=== PATIENT | male | born 1935 | race Caucasian/White ===

== ENCOUNTER 2019-03-28 11:08 | Emergency (ER) | payer OTHER, MEDICARE ==
[~2019-03-28] VITALS: Ht 172.7 cm; Wt 72.6 kg
[~2019-03-28 11:08] MED LIST: ALLOPURINOL 30300 M2 PO; APAP500 PO; AVODART0.5 MG PO; BAYER CHEWABLE81 MG PO; BIOFREEZE118 ML TP; CENTRUM SILVER1 EAC2 PO; COLACE100 MG PO; COZAAR 50 MG TA50 M2 PO; ECONAZOLE NITRA85 GM; LIPITOR10 MG PO; NORCO 5-325 TA1 EACH PO
[2019-03-28 12:05] LABS: ABSOLUTE NEUTROPHILS 4.6 thou/uL (1.4-8.2); BASOPHILS 0.2 % (0.0-2.0); EOSINOPHILS 4.5 % (0.0-3.0); HEMOGLOBIN 15.1 gm/dL (14.0-18.0); LYMPHOCYTES 24.1 % (24.0-44.0); MCH 32.3 pg (26.0-34.0); MCHC 34.3 g/dL (28.0-37.0); MCV 94.2 fL (80.0-100.0); MONOCYTES 10.4 % (1.0-8.0); PLATELET COUNT 204 thou/uL (150-400); POLYS 60.8 % (36.0-66.0); RBC 4.67 mil/uL (4.50-6.00); RDW 13.7 % (10.5-14.5); WBC 7.6 thou/uL (4.0-11.0)
[2019-03-28 12:11] LABS: CALCIUM 9.8 mg/dL (8.5-10.1); CREATININE 1.5 mg/dL (0.7-1.3); POTASSIUM 4.4 mmol/L (3.5-5.1)
[2019-03-28 12:18] LABS: ALBUMIN 3.9 g/dL (3.4-5.0); TOTAL BILIRUBIN 0.6 mg/dL (<0.1-1.0); TOTAL PROTEIN 7.8 g/dL (6.4-8.2)
[2019-03-28 12:21] LABS: URINE BILIRUBIN NEGATIVE (Negative); URINE BLOOD 3+ (Negative); URINE GLUCOSE-RANDOM* NEGATIVE (Negative); URINE KETONES NEGATIVE (Negative); URINE LEUKOCYTES-REFLEX NEGATIVE (Negative); URINE NITRITE-REFLEX NEGATIVE (Negative); URINE PROTEIN (DIPSTICK) 2+ (Negative); URINE UROBILINOGEN 0.2 E.U./dl (0.2-1.0)
[2019-03-28 12:26] LABS: URINE CLARITY CLOUDY; URINE COLOR RED
[2019-03-28 13:12] LABS: CASTS None Seen /LPF (None Seen); CRYSTALS None Seen /LPF (None Seen); SQUAMOUS None Seen /LPF (0-3); URINE RBC >20 Many /HPF (0-2); URINE WBC-REFLEX 0-5 Rare /HPF (0-5)
[2019-03-28 13:13] LABS: BACTERIA-REFLEX >30 Many /HPF (None Seen)
[2019-03-28 13:14] LABS: YEAST-REFLEX Present (None Seen)
[2019-03-28] MEDS ORDERED: CIPRO500 MG PO (13:48)
[2019-03-28 14:18] VITALS: BP 146/71
== END 2019-03-28 14:18 | disposition home or self-care (01) ==
LOC: ER 11:08
PROVIDERS: Nurse Practitioner Family
DX: R31.9 Hematuria, unspecified (principal); E78.00 Pure hypercholesterolemia, unspecified; Z91.041 Radiographic dye allergy status; Z87.442 Personal history of urinary calculi; Z90.5 Acquired absence of kidney

== ENCOUNTER → 2019-07-14 | Outpatient (CLI) | payer OTHER, MEDICARE ==
[~2019-07-14] MED LIST changes: +CIPRO500 MG PO
--- NOTE | 2019-07-15 08:36 | EKG ---
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
== END ==
LOC: CV 14:28
DX: I45.10 Unspecified right bundle-branch block (principal)